=== PATIENT | male | born 1975 | race Caucasian/White ===

== ENCOUNTER 2016-06-26 10:10 | Emergency (ER) | payer BC ==
[~2016-06-26 10:10] MED LIST: AMB10 PO; FLEXERIL5 MG PO; GOODY'S BODY P1 EACH PO
== END 2016-06-26 10:20 | disposition home or self-care (01) ==
LOC: ER 10:10
DX: M54.5 Low back pain (principal); G89.29 Other chronic pain; J44.9 Chronic obstructive pulmonary disease, unspecified; F17.200 Nicotine dependence, unspecified, uncomplicated; Z79.82 Long term (current) use of aspirin; Z79.899 Other long term (current) drug therapy
CPT/HCPCS: 72100; 81001; 99284; A9270-GY